=== PATIENT | male | born 1980 | race Caucasian/White ===

== ENCOUNTER 2025-03-12 06:00 | Day surgery (SDC) | payer OTHER ==
[~2025-03-12] VITALS: Ht 182.9 cm; Wt 80.0 kg
[~2025-03-12 06:00] MED LIST: FISH OIL 1,001000 MG PO; GINGER250 MG PO; L-LYSINE500 M1 PO; LACTATED RINGER'S 1,000 ML IV SCH; MULTI VITAMIN1 EACH PO; TURMERIC500 M2 PO
[2025-03-12 06:14] VITALS: BP 165/128
[2025-03-12 06:29] VITALS: BP 134/78
[2025-03-12] MEDS ORDERED: ROCURONIUM BROMIDE 50 MG/5 ML SYR ONE (06:56)
[2025-03-12] MEDS ORDERED: LIDOCAINE HCL 2% 5 ML SDV ONE (06:56)
[2025-03-12] MEDS ORDERED: CEFAZOLIN SODIUM 2 GM in SODIUM CHLORIDE 0.9% 100 ML IV SCH (07:00)
[2025-03-12] MEDS ORDERED: IBLOOD GLUCOSE TEST STRIP 1 EA TEST VI PRN ×2 (07:00→08:30)
[2025-03-12] MEDS ORDERED: LIDOCAINE HCL 1% 5 ML SDV INJ ONE (07:00)
[2025-03-12] MEDS ORDERED: fentaNYL citrate 100 MCG/2 ML VIAL ONE (07:33)
[2025-03-12] MEDS ORDERED: ACETAMINOPHEN 1,000 MG/100 ML VIAL ONE (07:35)
[2025-03-12] MEDS ORDERED: KETOROLAC TROMETHAMINE 30 MG/ML VIAL ONE (08:23)
[2025-03-12] MEDS ORDERED: DEXAMETHASONE SOD PHOS 4 MG/ML VIAL ONE (08:23)
[2025-03-12] MEDS ORDERED: SUGAMMADEX SODIUM 200 MG/2 ML ML ONE (08:28)
[2025-03-12] MEDS ORDERED: HYDROmorphone HCL 1 MG/ML SYR IV PRN (08:30)
[2025-03-12] MEDS ORDERED: fentaNYL citrate 50 MCG/ML SDV IV PRN (08:30)
[2025-03-12] MEDS ORDERED: NALOXONE HCL 0.4 MG SYR IV PRN ×2 (08:30→09:00)
[2025-03-12] MEDS ORDERED: IBUPROFEN600 MG PO (08:54)
[2025-03-12] MEDS ORDERED: ACETAMINOPHEN500 MG PO (08:55)
[2025-03-12] MEDS ORDERED: OXYCODON-ACETA1 EAC2 PO (08:55)
[2025-03-12] MEDS ORDERED: ACETAMINOPHEN 500 MG TAB PO PRN (09:00)
[2025-03-12] MEDS ORDERED: LACTATED RINGER'S 1,000 ML IV SCH (09:00)
[2025-03-12] MEDS ORDERED: OXYCODONE/APAP 7.5/325 TAB PO PRN (09:00)
[2025-03-12] MEDS ORDERED: IBUPROFEN 600 MG TAB PO PRN (09:00)
--- NOTE | 2025-03-12 09:08 | NUR ---
03/12/25 0908 Miranda Marcos 0849- PT ARRIVES TO PACU SUPINE POSITION, NON REACTIVE TO STIMULUS. OPA IN PLACE, BREATHING EVEN AND NON LABORED, O2 AT 6L PER MASK. ABD SOFT, NON DISTENDED. LR INFUSING TO RFA IV. ALL MONITORS IN PLACE. 0856- PT WAKES ON OWN, REACHING FOR FACE. REORIENTED PT TO TIME AND PLACE AND KEPT HANDS FROM RUBBING FACE. PT FOLLOWED INSTRUCTIONS TO REMOVE OPA, O2 LEFT IN PLACE. 0857- PT RUBBING AT MASK AND NOSE, MOVED TO ROOM AIR. 0905- ICE WATER PROVIDED, TOLERATING WELL.
[2025-03-12 09:12] VITALS: BP 117/74
--- NOTE | 2025-03-12 09:15 | NUR ---
PT ARRIVED BACK TO DS ON RA, AAOX3, ANSWERING QUESTIONS APPROPRIATELY, AND ABLE TO MAKE NEEDS KNOWN. VS TAKEN. IV SITE ASSESSED AND NOTED TO BE SL'D. REPORT RECEIVED FROM WATER SUPERINTENDENT AND SURGICAL SITE VISUALIZED WITH WATER SUPERINTENDENT. NOTED SMALL AMT OF SS DRAINAGE PRESENT ON LATERAL PORTION OF DRESSING EDGE. DRSG REMAIN INTACT. PT NOTED TO BE DRINKING ICE WATER UPON HIS RETURN ALSO. PT DENIES NAUSEA OR PAIN WHEN ASKED. BROUGHT TO PT ROOM. ICE WATER REFILLED. PT PROVIDED WITH COFFEE AND APPLESAUCE. CALL LIGHT WITHIN PT REACH. BED IN LOWEST POSITION, WHEELS LOCKED, BILAT RAILS IN PLACE. ALL QUESTIONS ANSWERED.
--- NOTE | 2025-03-12 09:52 | NUR ---
4282 PT USED CALL LIGHT TO ALERT RN THAT PT NEEDS TO URINATE. PT ABLE TO AMBULATE TO BATHROOM WITH EVEN STEADY GAIT AND VOID 300 MLS OF CLEAR YELLOW URINE. PT ABLE TO AMBULATE BACK TO ROOM. PT GETTING DRESSED WITH 'S ASSISTANCE.
[2025-03-12 10:01] VITALS: BP 135/79
--- NOTE | 2025-03-12 10:01 | NUR ---
INTO PTS ROOM FOR ROUTINE REASSESSMENT AND DISCHARGE EDUCATION. PT PROVIDED WITH VERBAL AND WRITTEN DC EDUCATION. PT VERBALIZED UNDERSTANDING. ALL QUESTIONS WERE ANSWERED. PRESENT AT BEDSIDE. IV SITE ASSESSED AND REMOVED. TIP APPEARS INTACT. PRESSURE DRSG APPLIED WITH GAUZE AND COBAN. VS TAKEN. PT DENIES NAUSEA AND PAIN WHEN ASKED. SURGICAL SITE VISUALIZED AND NO ACUTE CHANGES NOTED FROM INITIAL ASSESSMENT. PT TOLERATING PO FOOD AND FLUIDS WELL W/O ISSUES NOTED OR REPORTED. LEFT TO PULL CAR AROUND TO FRONT OF HOSPITAL FOR PT DISCHARGE.
--- NOTE | 2025-03-12 10:15 | NUR ---
PT DISCHARGED FROM DS VIA WC TO PASSENGER SIDE OF WIFES VEHICLE. ALL PERSONAL BELONGINGS TAKEN WITH HIM.
[2025-03-12] MEDS ORDERED: SEVOFLURANE 250 ML BTL INH ONE (15:36)
--- NOTE | 2025-03-13 17:12 | OR ---
[facility] [address], [place] [address] Signed DATE OF OPERATION: 03/12/2025 SURGEON: Santa Steward MD PREOPERATIVE DIAGNOSIS: Giant right lumbar lipoma. POSTOPERATIVE DIAGNOSIS: Giant right lumbar lipoma, subfascial, 8 cm. PROCEDURE: Excision of subfascial giant lumbar lipoma, 8 cm. ANESTHESIA: General endotracheal; TOOL DESIGN DRAFTER and local 10 mL of 0.25% Marcaine with epinephrine. INDICATION: This 44-year-old white man is a patient of Dr. Klaudia Benavides. A number of years ago, he noticed a small mass in the right lumbar area which in time has grown quite extensively. A plan for excision in the office was considered by Dr. Benavides, but given its large size and probably deep location operative intervention in a more appropriate operating room environment with anesthesia was deemed most appropriate. On that basis, he was evaluated. Lesion appears to be a benign lipoma and measures approximately 8 cm in size. He wishes to have it excised as it is uncomfortable for him increasingly and is growing in time. The risk of bleeding, infection, recurrence and of course the unlikely possibility of malignancy requiring additional treatment was reviewed with him. He understands and wished to proceed. FINDINGS: The lesion appeared to be a benign lipoma. It was multilobulated but generally smooth and not invasive into the fascia of the deep lumbar space. It was beneath the Camper's fascia layer and subfascial. Complete excision was undertaken. It measured 8.2 cm once fully excised. There were no complications. DESCRIPTION OF PROCEDURE: The patient was brought to the operating room, given a general endotracheal anesthetic and placed in the prone jing-knife position with careful padding of all pressure points. The lumbar area was clipped and prepared with a chlorhexidine solution and draped sterilely. Preoperative antibiotic Ancef was given and sequential compression device stockings were used. The line of skin tension was transverse in this area of the Electronically Signed By: SANTA STEWARD MD 03/13/25 1712 PATIENT NAME: MILA GARCIA OPERATIVE REPORT DATE OF : 78 REPORT #: [id number] PHYSICIAN: SANTA STEWARD MD PCP: KLAUDIA BENAVIDES MD REPORT IS CONFIDENTIAL AND NOT TO BE RELEASED WITHOUT AUTHORIZATION [facility] [address], [place] [address] Signed posterior thorax. An incision was made directly over the lesion. Dissection was carried through the dermis with electrocautery and a thin capsular layer was incised with electrocautery revealing underlying lipomatous appearing mass. It was multilobulated and relatively dense. It was meticulously dissected free from the lumbar fascia deep in the posterior lumbar area and was completely excised. It was measured at 8.2 cm. Irrigation was undertaken with sterile water showing no sign of bleeding or other problems. A partial quilting technique was used to close the wound so as to diminish space and the deep dermal layer was reapproximated with interrupted 2-0 Vicryl and ultimately a running subcuticular 3-0 Vicryl for the skin. Steri-Strips were applied as was an Acticoat dressing. The patient was returned to the supine position, extubated, anticipating transfer to the recovery room in good condition. Blood loss was minimal. Complications none. MD AZRA Fabian/KEYAL /[id number] cc: Klaudia Benavides MD Copies: KLAUDIA BENAVIDES MD ~ Electronically Signed By: SANTA STEWARD MD 03/13/25 1712 PATIENT NAME: MILA GARCIA OPERATIVE REPORT DATE OF : 78 REPORT #: [id number] PHYSICIAN: SANTA STEWARD MD PCP: KLAUDIA BENAVIDES MD REPORT IS CONFIDENTIAL AND NOT TO BE RELEASED WITHOUT AUTHORIZATION
--- NOTE | 2025-03-17 08:29 | PATH ---
[facility] [address] [place] [address] Signed SPECIMEN(S): A LUMBAR LIPOMA, 8 CM SPECIMEN SOURCE: A. LUMBAR LIPOMA, 8 CM CLINICAL HISTORY: Lumbar lipoma FINAL PATHOLOGIC DIAGNOSIS: A. Lumbar lipoma, excision: - Benign lipoma. DDF MICROSCOPIC EXAMINATION: Histologic sections of all submitted blocks are examined by light microscopy. These findings, together with the gross examination, support the pathologic diagnosis. GROSS DESCRIPTION: The specimen, labeled and designated "Gilbert Garcia, lumbar 8 cm lipoma per requisition," is received in formalin and consists of a 9.2 x 7.8 x 1.8 cm yellow soft tissue with a thin translucent membrane capsule. The external surface is inked black. Sectioning reveals a homogenous, soft and yellow cut surface without firm areas. No hemorrhage or necrosis is seen. [employer] Supervisor sections are submitted in (A1-A2). AA (under the direct supervision of a pathologist) The Gross Description was prepared using a voice recognition system. The report was reviewed for accuracy; however, sound-alike word errors, addition and/or deletions may occur. If there is any question about this report, please contact Client Services. ADDITIONAL NOTES: Immunohistochemical and/or in situ hybridization studies if performed in this case included appropriate positive controls that reacted as expected. This test was developed and its performance characteristics determined by [facility]. It has not been cleared or approved by the U.S. Food and Drug Administration. The FDA has determined that such clearance or approval is not necessary. This test is used for clinical purposes. It should not be regarded as investigational or for research. [facility] is certified under the PATIENT NAME: MILA GARCIA PATHOLOGY DATE OF : 78 REPORT #: [id number] PHYSICIAN: FISH PATHOLOGY PCP: KLAUDIA CARDOZO MD REPORT IS CONFIDENTIAL AND NOT TO BE RELEASED WITHOUT AUTHORIZATION [facility] [address] [place] [address] Signed Clinical Laboratory Improvement Amendments of 1988 (CLIA) as qualified to perform high complexity clinical laboratory testing. PERFORMING LABORATORY: Technical component was performed by [facility], [address] [place] [id number] (CLIA# [id number]). Professional interpretation was performed by [facility] [address] [place] [phone] [id number] Diagnostician: Errol Mora DO Pathologist Electronically Signed 03/17/2025 Copies: ~ PATIENT NAME: MILA GARCIA PATHOLOGY DATE OF : 78 REPORT #: [id number] PHYSICIAN: FISH SALINAS PCP: KLAUDIA CARDOZO MD REPORT IS CONFIDENTIAL AND NOT TO BE RELEASED WITHOUT AUTHORIZATION
== END 2025-03-12 10:15 | disposition home or self-care (01) ==
LOC: DS 06:00
PROVIDERS: ATTEND Surgery
PROC: 0JB70ZZ Excision of Back Subcutaneous Tissue and Fascia, Open Approach (ICD-10-PCS; principal; 2025-03-12 07:30)
DX: D17.39 Benign lipomatous neoplasm of skin and subcutaneous tissue of other sites (principal)
CPT/HCPCS: 00635; J0131; J0688; J1100; J1885; J2003; J2405; J2704; J3010; J3490; J7121